=== PATIENT | male | born 1950 | race Asian ===

== ENCOUNTER 2018-09-13 20:11 | Emergency (ER) | payer MEDICARE, OTHER ==
[~2018-09-13] VITALS: Ht 160 cm; Wt 71.2 kg
[2018-09-13 20:48] VITALS: BP 158/92
[2018-09-14] MEDS ORDERED: diphenhdrAMINE HCL 25 MG CAP PO ONE (01:00)
[2018-09-14] MEDS ORDERED: EPINEPHrine HCL 1 MG/1 ML AMP SC ONE (01:00)
[2018-09-14] MEDS ORDERED: methylPREDNISolone SOD SUCC 125 MG/2 ML VL IM ONE (01:00)
== END 2018-09-14 01:30 | disposition home or self-care (01) ==
LOC: ER 20:19
DX: T78.40XA Allergy, unspecified, initial encounter (principal); X58.XXXA Exposure to other specified factors, initial encounter
CPT/HCPCS: 82962; 96372; 99283; J0171; J2930